=== PATIENT | male | born 1965 | race Two or more races ===

== ENCOUNTER 2018-07-07 02:03 | Emergency (ER) | payer MEDICAID, SELFPAY ==
[~2018-07-07] VITALS: Ht 182.9 cm; Wt 88.0 kg
[2018-07-07 02:05] VITALS: BP 131/91
[2018-07-07] MEDS ORDERED: LISI-167 PO (02:40)
[2018-07-07] MEDS ORDERED: CLOP75TA PO (02:40)
[2018-07-07] MEDS ORDERED: METO25TA35 PO (02:40)
[2018-07-07] MEDS ORDERED: ATOR20TA37 PO (02:40)
--- NOTE | 2018-07-07 02:50 | NUR ---
D/C INSTRUCTIONS AND RX X4 GIVEN TO PT, HE VERBALIZES UNDERSTANDING. AMBULATED OUT OF ED WITH GIRLFRIEND.
== END 2018-07-07 02:53 | disposition home or self-care (01) ==
LOC: ED 02:40
DX: I10 Essential (primary) hypertension (principal); Z76.0 Encounter for issue of repeat prescription; E78.00 Pure hypercholesterolemia, unspecified
CPT/HCPCS: 99283